=== PATIENT | female | born 2000 | race Caucasian/White ===

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

== ENCOUNTER → 2022-01-02 | Outpatient (CLI) | payer OTHER, SELFPAY ==
[2022-01-02 18:08] LABS: AST(SGOT) 23 U/L (15-37); Alanine Aminotransfer ALT/SGPT 21 U/L (13-56); Cholesterol 163 mg/dL (200); High Density Lipoprotein 52 mg/dL; Triglycerides 121 mg/dL; Very Low Density Lipoprotein 24 mg/dL (5-40)
[2022-01-02 18:22] LABS: Internal QC Validated? YES +Cl - CLEAR BKGD; Pregnancy, Serum, hCG Quali. NEGATIVE Negative
== END | disposition home or self-care (01) ==
LOC: MTLAB 16:39
PROVIDERS: PCP Pediatrics; Referring Provider Dermatology; Visit Provider Dermatology
DX: L70.0 Acne vulgaris (principal); L90.5 Scar conditions and fibrosis of skin; K13.0 Diseases of lips; L85.3 Xerosis cutis; Z79.899 Other long term (current) drug therapy
CPT/HCPCS: 36415; 80061; 84450; 84460; 84703

== ENCOUNTER → 2022-02-04 | Outpatient (CLI) | payer OTHER, SELFPAY ==
[2022-02-04 18:24] LABS: Internal QC Validated? YES +Cl - CLEAR BKGD; Pregnancy, Urine Negative Negative
== END | disposition home or self-care (01) ==
LOC: MTLAB 16:50
PROVIDERS: PCP Pediatrics; Referring Provider Dermatology; Visit Provider Dermatology
DX: L70.0 Acne vulgaris (principal); L90.5 Scar conditions and fibrosis of skin; K13.0 Diseases of lips; L85.3 Xerosis cutis; Z79.899 Other long term (current) drug therapy
CPT/HCPCS: 81025

== ENCOUNTER → 2022-03-12 | Outpatient (CLI) | payer OTHER, SELFPAY ==
[2022-03-12 18:13] LABS: Internal QC Validated? YES +Cl - CLEAR BKGD; Pregnancy, Urine Negative Negative
== END | disposition home or self-care (01) ==
PROVIDERS: PCP Pediatrics; Referring Provider Dermatology; Visit Provider Dermatology
DX: L70.0 Acne vulgaris (principal); L90.5 Scar conditions and fibrosis of skin; K13.0 Diseases of lips; L85.3 Xerosis cutis; Z79.899 Other long term (current) drug therapy
CPT/HCPCS: 36415; 81025

== ENCOUNTER → 2022-05-08 | Outpatient (CLI) | payer OTHER, SELFPAY ==
[2022-05-08 09:56] LABS: Internal QC Validated? YES +Cl - CLEAR BKGD; Pregnancy, Urine Negative Negative
== END | disposition home or self-care (01) ==
LOC: MTLAB 08:44
PROVIDERS: PCP Pediatrics; Referring Provider Dermatology; Visit Provider Dermatology
DX: L70.0 Acne vulgaris (principal); L90.5 Scar conditions and fibrosis of skin; K13.0 Diseases of lips; L85.3 Xerosis cutis; Z79.899 Other long term (current) drug therapy
CPT/HCPCS: 81025

== ENCOUNTER → 2022-06-12 | Outpatient (CLI) | payer OTHER, SELFPAY ==
[2022-06-12 12:46] LABS: Internal QC Validated? YES +Cl - CLEAR BKGD; Pregnancy, Urine Negative Negative
== END | disposition home or self-care (01) ==
LOC: MTLAB 10:32
PROVIDERS: PCP Pediatrics; Referring Provider Dermatology; Visit Provider Dermatology
DX: L70.0 Acne vulgaris (principal); L90.5 Scar conditions and fibrosis of skin; K13.0 Diseases of lips; L85.3 Xerosis cutis; Z79.899 Other long term (current) drug therapy
CPT/HCPCS: 81025

== ENCOUNTER → 2022-07-10 | Outpatient (CLI) | payer OTHER, SELFPAY ==
[2022-07-10 12:05] LABS: Internal QC Validated? YES +Cl - CLEAR BKGD; Pregnancy, Urine Negative Negative
== END | disposition home or self-care (01) ==
PROVIDERS: PCP Pediatrics; Referring Provider Dermatology; Visit Provider Dermatology
DX: L70.0 Acne vulgaris (principal); L90.5 Scar conditions and fibrosis of skin; K13.0 Diseases of lips; L85.3 Xerosis cutis; Z79.899 Other long term (current) drug therapy; L81.0 Postinflammatory hyperpigmentation
CPT/HCPCS: 81025

== ENCOUNTER → 2022-07-29 | Outpatient (CLI) | payer OTHER, SELFPAY ==
[2022-07-29 15:44] LABS: Internal QC Validated? YES +Cl - CLEAR BKGD; Pregnancy, Urine Negative Negative
== END | disposition home or self-care (01) ==
LOC: MTLAB 11:44
PROVIDERS: PCP Pediatrics; Referring Provider Dermatology; Visit Provider Dermatology
DX: Z79.899 Other long term (current) drug therapy (principal)
CPT/HCPCS: 81025

== ENCOUNTER → 2022-08-25 | Outpatient (CLI) | payer OTHER, SELFPAY ==
[2022-08-25 18:58] LABS: Internal QC Validated? YES +Cl - CLEAR BKGD; Pregnancy, Urine Negative Negative
== END | disposition home or self-care (01) ==
PROVIDERS: PCP Pediatrics; Referring Provider Dermatology; Visit Provider Dermatology
DX: L70.0 Acne vulgaris (principal); L90.5 Scar conditions and fibrosis of skin; K13.0 Diseases of lips; L85.3 Xerosis cutis; Z79.899 Other long term (current) drug therapy
CPT/HCPCS: 81025

== ENCOUNTER → 2022-10-09 | Outpatient (CLI) | payer OTHER, SELFPAY ==
[2022-10-09 12:51] LABS: Internal QC Validated? YES +Cl - CLEAR BKGD; Pregnancy, Urine Negative Negative
== END | disposition home or self-care (01) ==
LOC: MTLAB 10:09
PROVIDERS: PCP Pediatrics; Referring Provider Dermatology; Visit Provider Dermatology
DX: L70.0 Acne vulgaris (principal); L90.5 Scar conditions and fibrosis of skin; K13.0 Diseases of lips; L85.3 Xerosis cutis; L23.3 Allergic contact dermatitis due to drugs in contact with skin; Z79.899 Other long term (current) drug therapy
CPT/HCPCS: 81025

== ENCOUNTER 2023-12-28 19:52 | Emergency (ER) | payer OTHER, SELFPAY ==
[2023-12-28 19:52] VITALS: BP 117/84; PULSE 98; RESP 16; TEMP 36.9; O2SAT 100; BMI 25.7
[2023-12-28 20:48] LABS: Absolute Lymphocyte Count 2.07 X10^3/uL (0.83-4.51); Absolute Neutrophil Count 2.7 X10^3/uL (2.0-7.7); Basophil# 0.03 X10^3/uL; Basophil% 0.6 % (0-1); Eosinophil# 0.11 X10^3/uL; Eosinophils% 2.1 % (0-5); Hematocrit 38.4 % (37-47); Hemoglobin 13.2 g/dL (12.0-15.0); Lymphocyte # 2.07 X10^3/ul (0.83-4.51); Lymphocyte % 39.5 % (19-41); Mean Corp Hgb Conc 34.4 g/dL (32-36); Mean Corpuscular Hgb 29.9 pg (27.0-32.0); Mean Corpuscular Volume 87.1 fL (81-99); Mean Platelet Vol. 10.4 fl (6.2-12.0); Monocyte# 0.33 X10^3/uL; Monocyte% 6.3 % (0-10); NRBC Flagged by Analyzer 0 % (0-5); Neutrophil # 2.68 X10^3/uL (2.7-7.7); Neutrophil % 51.1 % (47-70); Platelet Count 280 K/mm3 (150-450); RBC Distribution Width CV 11.7 % (11.6-14.6); RBC Distribution Width SD 36.9 fl (35.1-43.9); Red Blood Count 4.41 M/mm3 (4.2-5.4); White Blood Count 5.2 K/mm3 (4.4-11.0)
[2023-12-28 20:57] LABS: Internal QC Validated? YES +Cl - CLEAR BKGD; Pregnancy, Serum, hCG Quali. NEGATIVE Negative
[2023-12-28 21:05] LABS: AST(SGOT) 12 U/L (15-37); Alanine Aminotransfer ALT/SGPT 20 U/L (13-56); Alkaline Phosphatase 48 U/L (45-117); Anion Gap 9 (5-15); BUN 12 mg/dL (7-18); BUN/Creat Ratio 14.9 RATIO (10-20); Calcium,Total 8.8 mg/dL (8.5-10.1); Chloride 106 mmol/L (98-107); EST Glomerular Filtration Rate 95 mL/min (>60); Est Glom Filt Rate - Afr Amer 115 mL/min (>60); Globulin 3.9 g/dL (2.2-4.2); Glucose 90 mg/dL (74-106); Lipase 56 U/L (13-75); Potassium 3.4 mmol/L (3.5-5.1); Protein, Total 7.9 g/dL (6.4-8.2); Sodium Level 139 mmol/L (136-145)
[2023-12-28 21:24] LABS: Bacteria 0 SEEN /hpf (None Seen); Mucous, Urine 0 SEEN /hpf (<or=2+); Squamous Epithelial Cells - UA 0 SEEN /hpf (5-10); White Blood Cells 0 SEEN /hpf (0-5)
[2023-12-28 21:34] LABS: Color, Urine Yellow (Yellow); Glucose, Dipstick Normal (Normal); Ketone-Dipstick 15 mg/dl (Negative); Leukocyte Esterase-Dipstick Negative /ul (Negative); Nitrite-Dipstick Negative (Negative); Occult Blood-Urine 25 /ul (Negative); Protein-Dipstick Negative (Negative); Specific Gravity, Urine 1.005 (1.002-1.030); Urine Bilirubin Dipstick Negative (Negative); Urine Clarity Clear (Clear); Urine Urobilinogen Normal (Normal)
[2023-12-28 21:44] LABS: Red Blood Cells-Urine 0-5 SEEN /hpf (0-5)
[2023-12-28 21:52] VITALS: BP 110/80; PULSE 65; RESP 16; O2SAT 99
[2023-12-28 23:00] VITALS: BP 114/85; PULSE 62; RESP 16; TEMP 36.9; O2SAT 98
== END 2023-12-28 23:06 | disposition home or self-care (01) ==
PROVIDERS: Emergency Provider Emergency Medicine; PCP Pediatrics; Visit Provider Emergency Medicine
DX: R10.13 Epigastric pain (principal); R10.12 Left upper quadrant pain; R10.32 Left lower quadrant pain; K29.70 Gastritis, unspecified, without bleeding
CPT/HCPCS: 74177; 80053; 81001; 83690; 84703; 85025; 99283; Q9967; A4216

== ENCOUNTER 2024-01-23 21:43 | Emergency (ER) | payer OTHER, SELFPAY ==
[2024-01-23 21:44] VITALS: BP 125/78; PULSE 118; RESP 18; TEMP 36.6; O2SAT 100; BMI 26.4
--- NOTE | 2024-01-23 22:46 | EX.ED.DYSGE1 ---
HPI History of Present Illness Chief Complaint: Laceration Informant: patient Narrative Narrative: Patient is a 24-year-old female with no significant past medical history. She is [id number]. She reports that 2 to 3 hours ago she was using scissors to cut a zip tie. She states she accidentally got her left ring finger and the way the scissors and sustained a laceration. She denies any numbness tingling or weakness. She states that she does not take blood thinners nor have a history of bleeding disorder. She reports she has been holding pressure and waiting hours but despite this the area is continued to bleed and therefore she presents to the hospital for evaluation [facility] Medical History no medical history no medical history Allergy/AdvReac Type Severity Reaction Status Date / Time No Known Allergies Allergy Verified 01/23/24 21:44 Surgical History no surgical history Social History Smoking Status: Never smoker ROS ROS ED Constitutional Constitutional ED: Denies chills or fever(s) ENT ENT ED: Denies sore throat Cardiovascular Cardiovascular: Denies chest pain Respiratory/Chest Respiratory/Chest: Denies cough or dyspnea Gastrointestinal Gastrointestinal: Denies abdominal pain, diarrhea, nausea or vomiting Genitourinary Genitourinary ED: Denies dysuria Musculoskeletal Musculoskeletal: Reports other Details: Positive left finger pain Integumentary Reports other Details: Positive left finger laceration Neurologic Neurologic: Denies headache(s) or paresthesias Hematologic/Lymphatic Hematologic/Lymphatic: Denies easy bleeding or easy bruising EXAM Physical Exam Const Vital Signs: 01/23/24 21:44 01/23/24 22:51 Temperature 97.8 F 97.8 F Temperature Source Temporal Pulse Rate 118 H 118 H Respiratory Rate 18 18 Blood Pressure 125/78 H 125/78 H Blood Pressure Mean 93 93 Pulse Ox 100 100 Oxygen Delivery Method Room Air Positive well nourished and well developed General Appearance ED: well developed HEENT HEENT Narrative: Normocephalic atraumatic Eyes PERRL and EOMs intact bilaterally Neck supple Resp normal respiratory effort and clear to auscultation bilaterally Cardio regular rate and regular rhythm Extremity Extremity Narrative: Left upper extremity is neurovascularly intact; AIN/PIN are intact and normal. No ligamentous or tendon injury noted. Patient has a laceration/skin avulsion along the dorsal finger pad of the left fourth digit that is approximately 1.5 cm in size and dermal layer deep with persistent dark red nonpulsatile bleeding. No nailbed involvement Remainder of the exam is normal Neuro oriented x3, CN's II-XII intact bilaterally and no sensory deficits noted Sensorium / Orientation: alert Motor Exam: strength 5/5 throughout Psych mental status grossly normal Skin Skin Narrative: Laceration/skin avulsion to the left fourth digit as documented above MDM MDM MDM Narrative Medical decision making narrative: Patient arrived to the ER tachycardic but otherwise with stable vital. She sustained a simple laceration/skin avulsion to her left fourth. By physical exam there is no signs of nailbed injury no signs of tendon or ligamentous injury and no bony trauma. Therefore there is no need for imaging or laboratory studies. As the patient is having persistent ooze of bleeding but there is no skin left to suture Surgicel was placed on the wound as documented below followed by pressure wrap. At this time as she is only had minimal bleeding for the last few hours I have low concern for acute blood loss anemia and she has no signs of infection. Therefore after the wound has been covered with Surgicel and placed in a pressure wrap there is no need for further intervention and she is otherwise safe for discharge Patient had her left fourth finger cleaned with chlorhexidine. Surgicel was then applied over top the skin avulsion. A pressure wrap with Coban was then placed over top the Surgicel. Patient tolerated procedure well without complication History & Record Review Discussion w/independent historian: Patient Discharge Plan Triage Chief Complaint: Laceration ED Provider: Ulysses Hussein Dx/Rx/DC Orders Clinical Impression: Laceration of finger of left hand Instructions: ED Laceration Extremity Primary Care Provider: Lynn Cruz Referrals: Lynn Cruz MD [Primary Care Provider] - Activity Restrictions/Additional Instructions: Please leave the Surgicel and pressure wrap on for the next 10 to 12 hours. At that time you can remove the pressure wrap and if the Surgicel is still attached to your finger wash your hands or shower to remove the Surgicel. If there is still a small amount of bleeding you can reapply the Surgicel that was given to you in the ER and wrap it once again. If you notice increased redness or streaking or discharge or have any further concerns please return to the ER for repeat evaluation Print Language: Italian Disposition Disposition: Home, Self Care Discharge Date/Time: 01/23/24 23:07
[2024-01-23 22:51] VITALS: BP 125/78; PULSE 118; RESP 18; TEMP 36.6; O2SAT 100
== END 2024-01-23 23:07 | disposition home or self-care (01) ==
PROVIDERS: Emergency Provider Emergency Medicine; PCP Pediatrics; Visit Provider Emergency Medicine
DX: S61.219A Laceration without foreign body of unspecified finger without damage to nail, initial encounter (principal); W27.2XXA Contact with scissors, initial encounter
CPT/HCPCS: 99282